=== PATIENT | female | born 1995 | race African-American/Black ===

== ENCOUNTER 2018-01-23 20:09 | Emergency (ER) | payer OTHER, MEDICAID ==
--- NOTE | 2018-01-23 21:05 | ED Physician Chart ---
ED Chief Complaint/HPI - Patient Information Date Seen:: 01/23/18 Time Seen:: 21:00 Chief Complaint:: Abdominal pain and vaginal bleeding History of Present Illness:: 23 yo female, , had significant vaginal bleeding for 2 hours and abdominal pain for 1 hour. It was fluctuating, crampy pain, 9/10, every 3-5 minutes. No nausea, vomiting, or diarrhea. Home test positive 2 weeks ago. LMP was 01/06/18. Patient had two C-sections and most recent was 06/04/17. 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: Abnormal vaginal bleeding Musculoskeletal: No bone or joint pain Neurological: No focal symptoms ED Past Medical History - Past Medical History Past Medical History: No significant medical hx, Other () Social History: Smoker, No Alcohol, Illicit Drug Use (marijuana) Surgical History: (x 2) Family Medical History - Family Member Mother Hx Family Cancer: Yes (BREAST CA) ED Physical Exam - Physical Examination General/Constitutional: Awake, Alert Head: Atraumatic Eyes: PERRL Skin: No skin lesions ENMT: Nasal exam nl Neck: No nuchal rigidity Respiratory: No Wheeze/Rhonchi/Rales Cardio Vascular: RRR, No murmur, gallop, rubs, NL S1 S2 Other GI comments:: Lower abdomen tenderness Extremities: normal strength in all extremities Neuro/Psych: No focal deficits ED Labs/Radiology/EKG Results - Lab Results Results: Laboratory Last Values WBC 15.7 Th/cmm (4.8-10.8) H 01/23/18 21:25 RBC 4.68 Mil/cmm (3.80-5.10) 01/23/18 21:25 Hgb 11.6 gm/dL (12-16) L 01/23/18 21:25 Hct 35.4 % (41.0-60) L 01/23/18 21:25 MCV 75.7 fl (81-100) L 01/23/18 21:25 MCH 24.9 pg (27.0-31.0) L 01/23/18 21:25 MCHC Differential 32.8 pg (28.0-36.0) 01/23/18 21:25 RDW 18.5 % (11.5-20.0) 01/23/18 21:25 Plt Count 213 Th/cmm (150-400) 01/23/18 21:25 MPV 9.1 fl 01/23/18 21:25 Add Manual Diff YES 01/23/18 21:25 Band Neutrophils % 1 % (0-10) 01/23/18 21:25 Neutrophils (Manual) 75 % (40-80) 01/23/18 21:25 Lymphocytes 20 % (20-50) 01/23/18 21:25 Monocytes 3 % (2-10) 01/23/18 21:25 Eosinophils 1 % (0-5) 01/23/18 21:25 Basophils 0 % (0-3) 01/23/18 21:25 Microcytosis 2+ 01/23/18 21:25 PT 9.9 SECONDS (9.5-11.5) 01/23/18 21:25 INR 0.95 (0.5-1.4) 01/23/18 21:25 PTT (Actin FS) 19.3 SECONDS (26.0-38.0) L 01/23/18 21:25 Sodium 134 mEq/L (136-145) L 01/23/18 21:25 Potassium 3.4 mEq/L (3.5-5.1) L 01/23/18 21:25 Chloride 106 mEq/L (98-107) 01/23/18 21:25 Carbon Dioxide 19.5 mEq/L (21.0-31.0) L 01/23/18 21:25 Anion Gap 11.9 (7.0-16.0) 01/23/18 21:25 BUN 10 mg/dL (7-25) 01/23/18 21:25 Creatinine 0.7 mg/dL (0.6-1.2) 01/23/18 21:25 Est GFR ( Amer) > 60.0 ml/min (>90) 01/23/18 21:25 Est GFR (Non-Af Amer) > 60.0 ml/min 01/23/18 21:25 BUN/Creatinine Ratio 14.3 01/23/18 21:25 Glucose 100 mg/dL (70-105) 01/23/18 21:25 Whole Bld Lactic Acid 0.82 mmol/L (0.60-1.99) 01/23/18 22:35 Calcium 9.5 mg/dL (8.6-10.3) 01/23/18 21:25 Total Bilirubin 0.2 mg/dL (0.3-1.0) L 01/23/18 21:25 AST 12 U/L (13-39) L 01/23/18 21:25 ALT 7 U/L (7-52) 01/23/18 21:25 Alkaline Phosphatase 48 U/L (34-104) 01/23/18 21:25 Total Protein 7.0 gm/dL (6.0-8.3) 01/23/18 21:25 Albumin 4.1 gm/dL (3.7-5.3) 01/23/18 21:25 Globulin 2.9 gm/dL 01/23/18 21:25 Albumin/Globulin Ratio 1.4 (1.0-1.8) 01/23/18 21:25 Beta HCG, Quant [id number] mIU/mL (0-0) H* 01/23/18 21:25 Urine Source RANDOM 01/23/18 22:10 Urine Color RED 01/23/18 22:10 Urine Clarity CLOUDY (CLEAR) H 01/23/18 22:10 Urine pH 7.0 (4.6 - 8.0) 01/23/18 22:10 Ur Specific [place] <= 1.005 (1.005-1.030) 01/23/18 22:10 Urine Protein 100 mg/dL (NEGATIVE) H 01/23/18 22:10 Urine Glucose (UA) NEGATIVE mg/dL (NEGATIVE) 01/23/18 22:10 Urine Ketones NEGATIVE mg/dL (NEGATIVE) 01/23/18 22:10 Urine Blood LARGE (NEGATIVE) H 01/23/18 22:10 Urine Nitrate NEGATIVE (NEGATIVE) 01/23/18 22:10 Urine Bilirubin NEGATIVE (NEGATIVE) 01/23/18 22:10 Urine Urobilinogen 0.2 E.U./dL (0.2 - 1.0) 01/23/18 22:10 Ur Leukocyte Esterase TRACE (NEGATIVE) H 01/23/18 22:10 Urine RBC 50-100 /hpf (0-5) H 01/23/18 22:10 Urine WBC 2-5 /hpf (0-5) 01/23/18 22:10 Ur Epithelial Cells FEW /lpf (FEW) 01/23/18 22:10 Urine Bacteria FEW /hpf (NONE SEEN) 01/23/18 22:10 POC Ur Test Positive 01/23/18 22:08 Rh positive - Radiology Results Results: Pelvic ultrasound: gestation sac seen in the lower uterine segment measuring 12w2d, pole measuring 8w4d, nonviable single , no heart tone. 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 ED Septic Shock - . Is Septic Shock (SBP<90, OR Lactate>4 mmol\L) present?: No - <6hrs of presentation: Vital Signs: Vital Signs - 8 hr 01/23/18 20:20 Temp 97.8 F HR 67 RR 18 BP 119/63 O2 Sat % 98 ED Reassessment (Disposition) - Reassessment Reassessment:: Patient refused to be transferred to her insurance contracted hospital. Patient decided to leave [facility] and possibly go to [facility] ER. Reassessment Condition:: Improved - Patient Disposition Discharge/Transfer:: Against Medical Advice
[2018-01-23 21:39] LABS: MEAN PLATELET VOLUME 9.1 fl; RED CELL DISTRIBUTION WIDTH 18.5 % (11.5-20.0)
[2018-01-23 21:41] LABS: HEMATOCRIT 35.4 % (41.0-60); HEMOGLOBIN 11.6 gm/dL (12-16); MEAN CELL VOLUME 75.7 fl (81-100); MEAN CORPUSCULAR HEMOGLOBIN 24.9 pg (27.0-31.0); MEAN CORPUSCULAR HGB CONC 32.8 pg (28.0-36.0); PLATELET COUNT 213 Th/cmm (150-400); RED BLOOD COUNT 4.68 Mil/cmm (3.80-5.10)
[2018-01-23 21:46] LABS: WHITE BLOOD COUNT 15.7 Th/cmm (4.8-10.8)
[2018-01-23 21:51] LABS: INR 0.95 (0.5-1.4); PROTHROMBIN TIME (TEST) 9.9 SECONDS (9.5-11.5)
[2018-01-23 21:54] LABS: ALB/GLOB RATIO 1.4 (1.0-1.8); ALBUMIN 4.1 gm/dL (3.7-5.3); ALKALINE PHOSPHATASE 48 U/L (34-104); ANION GAP 11.9 (7.0-16.0); BILIRUBIN,TOTAL 0.2 mg/dL (0.3-1.0); BUN - UREA NITROGEN 10 mg/dL (7-25); CALCIUM SERUM 9.5 mg/dL (8.6-10.3); CARBON DIOXIDE 19.5 mEq/L (21.0-31.0); CHLORIDE 106 mEq/L (98-107); CREATININE - SERUM 0.7 mg/dL (0.6-1.2); GFR AFRICAN-AMERICAN > 60.0 ml/min (>90); GFR NON AFRICAN-AMERICAN > 60.0 ml/min; GLUCOSE 100 mg/dL (70-105); POTASSIUM SERUM 3.4 mEq/L (3.5-5.1); SGOT 12 U/L (13-39); SGPT/ALT 7 U/L (7-52); SODIUM SERUM 134 mEq/L (136-145)
[2018-01-23 22:06] LABS: BAND NEUTROPHILE 1 % (0-10); BASOPHIL 0 % (0-3); EOSINOPHIL 1 % (0-5); LYMPHOCYTE 20 % (20-50); MONOCYTE 3 % (2-10); NEUTROPHILS 75 % (40-80)
[2018-01-23 22:15] LABS: URINE MICROSCOPIC INDICATED? YES; URINE SOURCE RANDOM
[2018-01-23 22:16] LABS: URINE BILIRUBIN NEGATIVE (NEGATIVE); URINE BLOOD LARGE (NEGATIVE); URINE GLUCOSE (UA) NEGATIVE (NEGATIVE); URINE KETONE NEGATIVE (NEGATIVE); URINE LEUKOCYTE ESTERASE TRACE (NEGATIVE); URINE NITRATE NEGATIVE (NEGATIVE); URINE PROTEIN 100 mg/dL (NEGATIVE); URINE UROBILINOGEN 0.2 E.U./dL (0.2 - 1.0)
[2018-01-23 22:24] LABS: URINE BACTERIA FEW /hpf (NONE SEEN); URINE CLARITY CLOUDY (CLEAR); URINE COLOR RED; URINE EPITHELIAL CELLS FEW /lpf (FEW); URINE RBC 50-100 /hpf (0-5)
[2018-01-23] MEDS ORDERED: Sodium Chloride 0.9% 1,000 ML IV ONE (22:35)
[2018-01-23] MEDS ORDERED: Ampicillin Sodium/Sulbactam 3 GM in Sodium Chloride 0.9% 100 ML IV ONE (22:43)
[2018-01-23] MEDS ORDERED: Morphine Sulfate 2 mg/mL 1mL Syr IV STA (23:13)
[2018-01-23 23:22] LABS: HCG QUANT 36499 mIU/mL (0-0)
[2018-01-23] MEDS ORDERED: Morphine Sulfate 2 mg/mL 1mL Syr ONE (23:24)
[2018-01-23] MEDS ORDERED: Potassium Chloride 20 mEq ER Tab PO ONE (23:24)
[2018-01-24] MEDS ORDERED: Potassium Chloride 20 mEq ER Tab PO ONE
--- NOTE | 2018-01-24 08:50 | Diagnostic Imaging Report ---
Ultrasound OB, less than 14 weeks HISTORY: female with pelvic cramps and vaginal bleeding. LMP was 01/06/2018 COMPARISON: None Technique: Longitudinal and transverse sonographic sector images of the pelvis were obtained transabdominally and transvaginally. FINDINGS: The uterus measures 12.4 x 6.5 x 6.6 cm. There is diffuse fluid and distention of the lower endometrial cavity and cervix, particularly of the cervix. There appears to be a gestational sac within the lower uterine/cervical region containing a pole with crown-rump length measuring 2.06 cm corresponding to a gestational age of 8 weeks and 5 days +/- 1week. No heart tones identified. Internal echoes are seen within gestational sac. Yolk sac was not identified. The right ovary measures 3.3 x 2.7 cm. Left ovary was not identified. No evidence of free fluid in the pelvis. IMPRESSION: Abnormal low-lying gestational sac extending to the cervix. A pole is identified with estimated gestational age of 8 weeks and 5 days +/- 1week. No heart tones identified. Given the constellation of findings findings are most suspicious for demise. Clinical correlation follow up including follow up serial beta-hCG and ultrasound is recommended. No evidence of free fluid in the pelvis.
== END 2018-01-23 23:58 | disposition left against medical advice (07) ==
LOC: ER 20:09
DX: O20.9 Hemorrhage in early pregnancy, unspecified (principal); O26.891 Other specified pregnancy related conditions, first trimester; R10.30 Lower abdominal pain, unspecified; Z3A.08 8 weeks gestation of pregnancy; Z98.890 Other specified postprocedural states
CPT/HCPCS: 99285; 96365; 96375; 76801; 86900; 86850; 36415; 86901; 84702; 83605; 85007; 85025; 85610; 87086; 81001; 81025; 80053; 87040; J2270; J0295; J7030; Z7610